=== PATIENT | female | born 1985 ===

== ENCOUNTER 2018-10-25 11:01 | Emergency (ER) | payer BC ==
[~2018-10-25] VITALS: Ht 152.4 cm; Wt 68.2 kg
[2018-10-25] MEDS ORDERED: ACETAMINOPHEN 500 MG TABLET PO ONE (11:45)
[2018-10-25 14:16] VITALS: BP 121/62
== END 2018-10-25 15:12 | disposition home or self-care (01) ==
LOC: EMS 11:08
DX: S83.8X1A Sprain of other specified parts of right knee, initial encounter (principal); M25.461 Effusion, right knee; F17.210 Nicotine dependence, cigarettes, uncomplicated; Z88.8 Allergy status to other drugs, medicaments and biological substances; X50.9XXA Other and unspecified overexertion or strenuous movements or postures, initial encounter; Y93.89 Activity, other specified; Y92.89 Other specified places as the place of occurrence of the external cause; Y99.8 Other external cause status
CPT/HCPCS: 99406